=== PATIENT | male | born 1975 | race Caucasian/White ===

== ENCOUNTER → 2019-05-22 10:41 | Outpatient (BNVA) | payer MEDICAID, SELFPAY | PROVIDERS: Family Provider Family Medicine; Visit Provider Psychiatry & Neurology Psychiatry | DX: F31.4 Bipolar disorder, current episode depressed, severe, without psychotic features (principal) | CPT/HCPCS: 99213 ==

== ENCOUNTER → 2019-08-15 08:49 | Outpatient (BNVA) | payer MEDICAID, SELFPAY | PROVIDERS: Family Provider Family Medicine; Visit Provider Psychiatry & Neurology Psychiatry | DX: F31.9 Bipolar disorder, unspecified (principal) | CPT/HCPCS: 99213 ==

== ENCOUNTER → 2019-11-13 08:03 | Outpatient (BNVA) | payer MEDICAID, SELFPAY | PROVIDERS: Family Provider Family Medicine; Visit Provider Psychiatry & Neurology Psychiatry | DX: F31.9 Bipolar disorder, unspecified (principal) | CPT/HCPCS: 99213 ==

== ENCOUNTER → 2020-02-05 08:02 | Outpatient (BNVA) | payer MEDICAID, SELFPAY | PROVIDERS: Family Provider Family Medicine; Visit Provider Psychiatry & Neurology Psychiatry | DX: F31.9 Bipolar disorder, unspecified (principal) | CPT/HCPCS: 99213 ==

== ENCOUNTER → 2020-02-27 07:57 | Outpatient (BNVA) | payer MEDICAID, SELFPAY | PROVIDERS: Family Provider Family Medicine; Visit Provider Psychiatry & Neurology Psychiatry | DX: F33.2 Major depressive disorder, recurrent severe without psychotic features (principal) | CPT/HCPCS: 99213 ==

== ENCOUNTER → 2022-07-12 09:05 | Outpatient (BNVA) | payer MEDICAID, SELFPAY | PROVIDERS: Family Provider Family Medicine; PCP Nurse Practitioner Family; Referring Provider Nurse Practitioner Family; Visit Provider Specialist | DX: G62.89 Other specified polyneuropathies (principal) | CPT/HCPCS: 95908; 95909 ==

== ENCOUNTER → 2022-12-20 08:11 | Outpatient (BNVA) | payer MEDICAID, SELFPAY | PROVIDERS: Family Provider Family Medicine; PCP Nurse Practitioner Family; Visit Provider Specialist | DX: G62.89 Other specified polyneuropathies (principal); F33.2 Major depressive disorder, recurrent severe without psychotic features; M54.9 Dorsalgia, unspecified | CPT/HCPCS: 36415; 82607; 82746; 83921; 84443; 85651; 86140; 86334; 86431; 99204 ==

== ENCOUNTER → 2023-01-11 08:57 | Outpatient (BNVA) | payer MEDICAID, SELFPAY | PROVIDERS: Family Provider Family Medicine; PCP Nurse Practitioner Family; Visit Provider Podiatrist Foot & Ankle Surgery | DX: M79.672 Pain in left foot (principal); G57.52 Tarsal tunnel syndrome, left lower limb | CPT/HCPCS: 73630; 99203 ==

== ENCOUNTER 2023-01-13 12:13 | Outpatient (CLI) | payer MEDICAID, SELFPAY ==
--- NOTE | 2023-01-13 12:15 | MR_ITS ---
WS: [id number] MRI LUMBAR SPINE NONCONTRAST TECHNIQUE: Sagittal T1, T2 and STIR imaging. Axial T1 and T2 imaging. CLINICAL INFORMATION: G62.89 - Other specified polyneuropathies COMPARISON: None. FINDINGS: Mild lumbar curve. No acute compression. No high-grade central canal stenosis. L1-L2: Normal. L2-L3: Normal. L3-L4: Mild annular bulging. Mild central canal stenosis. Slight impingement traversing L4 nerve root s bilaterally. Mild facet arthropathy. Small bilateral foraminal protrusions with mild LEFT greater t rivas RIGHT foraminal narrowing. L4-L5: Mild annular bulging. Slight narrowing of the subarticular recess bilaterally. Mild facet arth ropathy. Small bilateral foraminal protrusions with a LEFT annular fissure. Moderate LEFT foraminal n arrowing impinges exiting LEFT L4 nerve root. Mild RIGHT foraminal narrowing. Moderate facet arthropa thy. L5-S1: Mild annular bulging. Mild facet arthropathy. Spinal canal and foramen are patent. Visualized pelvic bony structures: Normal. Paravertebral soft tissues: Normal. IMPRESSION: 1. Mild lumbar curve. No acute compression. No high-grade central canal stenosis. 2. Mild annular bulging L3-4 with mild central canal stenosis and slight impingement traversing L4 n erve roots bilaterally. 3. Small bilateral foraminal protrusions L3-4 with mild LEFT greater than RIGHT foraminal narrowing. 4. LEFT foraminal protrusion L4-5 with a small annular fissure impinges the exiting L4 nerve root wi th moderate LEFT foraminal narrowing. 5. Narrowing of the L4-5 subarticular recess.
== END 2023-01-13 12:14 | disposition home or self-care (01) ==
PROVIDERS: PCP Nurse Practitioner Family; Visit Provider Specialist
DX: M47.816 Spondylosis without myelopathy or radiculopathy, lumbar region (principal); M48.061 Spinal stenosis, lumbar region without neurogenic claudication; G62.89 Other specified polyneuropathies
CPT/HCPCS: 72148

== ENCOUNTER → 2023-02-08 09:23 | Outpatient (BNVA) | payer MEDICAID, SELFPAY | PROVIDERS: PCP Nurse Practitioner Family; Visit Provider Podiatrist Foot & Ankle Surgery | DX: G57.52 Tarsal tunnel syndrome, left lower limb | CPT/HCPCS: 99213 ==

== ENCOUNTER 2023-03-14 08:06 | Outpatient (CLI) | payer MEDICAID, SELFPAY ==
--- NOTE | 2023-03-14 08:45 | MR_ITS ---
WS: [id number] MRI LEFT ANKLE WITHOUT CONTRAST. COMPARISON: LEFT foot radiographs 01/11/2023 Multiplanar, multisequence imaging is performed without contrast. No fractures or marrow edema. No osteochondral lesions. There are multiple dilated venous varicosities noted posterior to the medial tibia and extending dist ally around the medial ankle to the tarsal tunnel. Serpiginous, dilated venous structures consistent with varicosities. Closely associated with the tibial nerve and the medial plantar nerve. There is th ickening and heterogeneous intermediate signal predominantly within the distal tibial nerve in the me dial plantar nerve. This is best seen on the sagittal STIR sequence where there is a long segment of nerve thickening. Varicosities and increased T2 signal noted adjacent to the nerve. The nerve is thic kened and heterogeneous. There is an abrupt termination of the nerve which may be due to the change i n orientation of the nerve. Distally the medial plantar nerve is difficult to visualize. There is no fluid within the tendon sheaths of the flexor or extensor tendons. These tendons appear n ormal. No signal abnormality within the ligaments. Signal within the tarsal sinus is normal. There is a small calcaneal spur. No signal abnormality to s uggest denervation in the small muscles of the foot. IMPRESSION: 1. Numerous venous varicosities closely associated with the distal tibial nerve and the medial planta r nerve as it extends along the medial ankle through the tarsal tunnel. Abnormal signal within the ti bial nerve and the medial plantar branch. Consistent with significant tendinopathy. 2. No fracture.
== END 2023-03-14 08:07 | disposition home or self-care (01) ==
LOC: RAD 08:06
PROVIDERS: PCP Nurse Practitioner Family; Visit Provider Podiatrist Foot & Ankle Surgery
DX: M79.89 Other specified soft tissue disorders (principal); I83.92 Asymptomatic varicose veins of left lower extremity
CPT/HCPCS: 73721

== ENCOUNTER → 2023-03-15 08:15 | Outpatient (BNVA) | payer MEDICAID, SELFPAY | PROVIDERS: PCP Nurse Practitioner Family; Visit Provider Specialist | DX: G62.89 Other specified polyneuropathies (principal); G57.52 Tarsal tunnel syndrome, left lower limb; M51.36 Other intervertebral disc degeneration, lumbar region; I86.8 Varicose veins of other specified sites | CPT/HCPCS: 99213 ==

== ENCOUNTER → 2023-03-17 07:59 | Outpatient (BNVA) | payer MEDICAID, SELFPAY | PROVIDERS: PCP Nurse Practitioner Family; Visit Provider Podiatrist Foot & Ankle Surgery | DX: G57.52 Tarsal tunnel syndrome, left lower limb; I83.92 Asymptomatic varicose veins of left lower extremity | CPT/HCPCS: 99213 ==

== ENCOUNTER 2023-03-29 08:02 | Outpatient (CLI) | payer MEDICAID, SELFPAY ==
--- NOTE | 2023-03-29 08:15 | USCV_ITS ---
Guilherme Santoyo Age: 47 Gender: M : 1975 Exam Date: 03/29/2023 08:37 Ordering Phys: Pravin Anderson DPM Technologist: [place] [facility] [place]: HISTORY: PROCEDURES: Left duplex Venous Insufficiency study of the Deep and Superficial systems was carried out according to normal protocol with the patient in supine positon for deep system and dependent position for the superficial system. FINDINGS: All deep veins demonstrated compressibility without evidence of intraluminal thrombus or increased echogenicity. Spectral analysis of Doppler signals demonstrates normal response to compression maneuvers indicating patency without obstruction. Reflux determinations were made with the patient in the dependent position, the weight being on the contralateral leg. Vein measurements and reflux times are listed below were applicable. No notable reflux was seen at this time. The veins were found to be easily compressible with spontaneous blood flow. Non pulsatile flow pattern. . CONCLUSIONS No evidence of DVT or significant venous reflux in the above-mentioned identifiable veins. Dr Alistair Lmaar MD [facility] (Electronically Signed) Final Date: 29 March 2023 15:10 S
== END 2023-03-29 08:03 | disposition home or self-care (01) ==
LOC: RAD 08:03
PROVIDERS: PCP Nurse Practitioner Family; Visit Provider Podiatrist Foot & Ankle Surgery
DX: I87.8 Other specified disorders of veins (principal)
CPT/HCPCS: 93971

== ENCOUNTER → 2023-04-07 09:24 | Outpatient (BNVA) | payer MEDICAID, SELFPAY | PROVIDERS: PCP Nurse Practitioner Family; Referring Provider Podiatrist Foot & Ankle Surgery; Visit Provider Thoracic Surgery (Cardiothoracic Vascular Surgery) | DX: I83.92 Asymptomatic varicose veins of left lower extremity (principal); F17.210 Nicotine dependence, cigarettes, uncomplicated | CPT/HCPCS: 99202 ==